=== PATIENT | female | born 1990 | race Two or more races ===

== ENCOUNTER 2025-03-25 08:33 | Emergency (ER) | payer MEDICAID, SELFPAY ==
[2025-03-25 08:52] VITALS: BP 120/83; PULSE 77; RESP 16; TEMP 36.7; O2SAT 99; BMI 37.4
--- NOTE | 2025-03-25 09:06 | XR_ITS ---
Examination: Pelvic ultrasound, transabdominal, complete Technique: Transabdominal ultrasound of the pelvis performed using grayscale imaging Date and time of exam: March 25, 2025 1050 hours INDICATIONS: Pelvic pain beginning 4 days ago. FINDINGS: Uterus 9.7 cm no discrete uterine mass or intrauterine gestation Endometrial stripe 0.6 cm Right ovary 3.4 cm arterial flow. Left ovary 4.6 cm arterial flow 3.7 x 2.3 x 3.0 cm cyst IMPRESSION: Left ovarian simple cyst 3.7 x 2.3 x 3.0 cm
[2025-03-25 09:55] LABS: Collection Type, Urine Clean Catch
[2025-03-25 09:58] LABS: Basophils # (Auto) 0.0 Thou/mm3 (0.0-0.2); Basophils % (Auto) 0 % (0-2.5); Eosinophils # (Auto) 0.0 Thou/mm3 (0.0-0.5); Eosinophils % (Auto) 1 % (0-10); Hematocrit 35.3 % (36.0-46.0); Hemoglobin 12.3 g/dL (12.0-16.0); Immature Granulocytes Auto 0.01 Thou/mm3 (0.00-0.00); Lymphocytes # (Auto) 1.3 Thou/mm3 (1.0-4.8); Lymphocytes % (Auto) 29 % (10-50); Mean Corpuscular HGB Conc 34.8 g/dl (31.0-37.0); Mean Corpuscular Hemoglobin 28.9 pg (25.0-35.0); Mean Corpuscular Volume 83 fL (80-100); Monocytes # (Auto) 0.3 Thou/mm3 (0.0-0.8); Monocytes % (Auto) 7 % (0-12); Neutrophils # (Auto) 2.8 Thou/mm3 (1.8-7.7); Neutrophils % (Auto) 63 % (37-80); Nucleated Red Blood Cell # 0.00 Thou/mm3 (0.00-0.00); Nucleated Red Blood Cell % 0 /100 WBC (0); Platelet Count 267 Thou/mm3 (140-440); RDW Standard Deviation 37.7 fL (36.4-46.3); Red Blood Count 4.26 Miln/mm3 (4.00-5.20); White Blood Count 4.5 Thou/mm3 (3.6-11.0)
[2025-03-25 10:01] LABS: HCG Qualitative,Urine Negative
[2025-03-25 10:08] LABS: Bacteria,Urine Rare; Bilirubin,Urine Negative (Negative); Blood,Urine Negative (Negative); Color,Urine Yellow (Lt Yel-Yel); Culture Indicated,Urine Not Indicated; Glucose, Urine Negative (Negative); Ketones,Urine Negative (Negative); Leukocyte Esterase,Urine Positive (Negative); Nitrite,Urine Negative (Negative); PH,Urine 6.0 (5.0-7.0); Protein,Urine Trace (Neg - Trace); RBC,Urine 6 /hpf (0-3); Specific Gravity,Urine 1.031 (1.001-1.035); Squamous Epithelial Cell,Urine 7 /hpf (0-5); Urobilinogen,Urine Negative mg/dL (0.0-1.0); WBC,Urine 7 /hpf (0-5)
[2025-03-25 10:11] LABS: Clarity,Urine Hazy (Clear/Hazy)
[2025-03-25 10:19] LABS: Alanine Aminotransferase 44 U/L (10-49); Albumin, Serum 3.9 gm/dL (3.5-5.0); Albumin/Globulin Ratio 1.6 (1.2-2.2); Alkaline Phosphatase 53 U/L (46-116); Anion Gap 7 (7-16); Aspartate Amino Transferase 23 U/L (0-34); BUN/Creatinine Ratio 12 Ratio (12-20); Bilirubin,Total 0.5 mg/dL (0.3-1.2); Blood Urea Nitrogen 7 mg/dL (9-23); Calcium 8.5 mg/dL (8.3-10.6); Calcium (Corrected) 8.6 mg/dL (8.5-10.1); Carbon Dioxide 24.2 mMol/L (20.0-31.0); Chloride 109 mMol/L (98-107); Creatinine (Component) 0.6 mg/dL (0.6-1.3); Estimated Creatinine Clearance 134.7 mL/min (>60); Globulin 2.4 gm/dL (2.3-3.5); Glucose 99 mg/dL (74-106); Osmolality,Calculated 277 (275-295); Potassium 4.2 mMol/L (3.4-5.1); Sodium 140 mMol/L (136-145); Total Protein 6.3 gm/dL (5.7-8.2); eGFR > 60 See Note
--- NOTE | 2025-03-25 11:36 | EDNOTE_ITS ---
ED Female Urogenital RME/HPI General Chief complaint: Abdominal Pain Stated complaint: PELVIC PAIN Time Seen by Provider: 03/25/25 09:02 Arrival date/time: 03/25/25 08:33 34-year-old female presents to the emergency department if complains of pelvic pain patient ports no dysuria or vaginal discharge no chance of or STD patient worse abdominal pain nausea vomiting Limitations: no limitations Related Data Previous Rx's ?Medication ?Instructions ?Recorded ibuprofen 600 mg tablet 600 mg PO TID PRN pain #30 t abs 09/10/21 Allergies Allergy/AdvReac Type Severity Reaction Status Date / Time No Known Allergies Allergy Verified 09/10/21 16:56 Review of Systems Review of Systems Systems Reviewed: All systems reviewed, normal except as documented Constitutional Constitutional: Reports system reviewed and no additional complaints, except as documented, Denies fever(s) and Denies headache(s) Eyes Eyes: Reports system reviewed and no additional complaints, except as documented and Denies blurry vision ENT Ears, Nose, Mouth, and Throat: Reports system reviewed and no additional complaints, except as documented, Denies headache(s), Denies nasal congestion and Denies nasal discharge Cardiovascular Cardiovascular: Reports system reviewed and no additional complaints, except as documented, Denies chest pain and Denies dyspnea Respiratory Respiratory: Reports system reviewed and no additional complaints, except as documented, Denies chest congestion, Denies cough and Denies dyspnea Gastrointestinal Gastrointestinal: Reports system reviewed and no additional complaints, except as documented and Denies abdominal pain Genitourinary Genitourinary: Reports system reviewed and no additional complaints, except as documented, Denies dysuria, Denies flank pain and Reports pelvic pain Integumentary/Breasts Skin/Breast: Reports system reviewed and no additional complaints, except as documented and Denies rash Neurologic Neurologic: Reports system reviewed and no additional complaints, except as documented, Reports as per HPI and Denies headache(s) Past Medical History Past Medical History NEUROLOGIC: Negative Neurological Disorders CARDIAC: Negative Cardiac Disorders or Congestive Heart Failure RESPIRATORY: Negative Chronic Obstructive Pulmonary Disease (COPD) GASTROINTESTINAL: Negative Gastrointestinal Disorders, Hepatitis or Colorectal Cancer GENITOURINARY: Negative Genitourinary Disorders, Renal Disease or Prostate Cancer REPRODUCTIVE: Positive Previous Pregnancies (X4); Negative Breast Cancer or Testicular Cancer MUSCULOSKELETAL: Negative Musculoskeletal Disorders or Bone Cancer ENDOCRINE: Negative Endocrine Disorders, Diabetes Mellitus Type 1 or Diabetes Mellitus Type 2 HEMATOLOGIC: Positive Blood Disorders and Anemia OTHER HISTORY: Positive Hospitalization (X2) and Blood Transfusions; Negative Autoimmune Disease, Down Syndrome, Developmental Delay, Falls, Blood Transfusion Reaction, Anesthesia Reactions, Organ Transplant, Chemotherapy, Radiation Therapy, Hyperbaric Therapy, MRSA, VRSA, Vancomycin-Resistant Enterococci, Human Immunodeficiency Virus (HIV), Chicken Pox, Measles, Mumps, Rubella (Maltese Measles), Pertussis, Clostridium Difficile, Cancer, Breast Cancer, Cervical Cancer, Colorectal Cancer, Lung Cancer, Ovarian Cancer, Prostate Cancer or Testicular Cancer Family History FAMILY HISTORY: Negative Family Psychiatric Problems, Family Respiratory Disorders, Family Cardiac Disorders, Family Gastrointestinal Problems, Family Cancer, Family Surgery or Family Anesthesia Reaction Surgical History SURGICAL: Positive Tonsillectomy; Negative Section or Organ Transplant Social History SMOKING STATUS: Never smoker SECOND HAND EXPOSURE: No SUBSTANCE USE: does not use 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 ED Exam General Limitations: Present no limitations General appearance: Present alert and in no apparent distress Head Head exam: Present atraumatic Eye Eye exam: Present normal appearance, PERRL and EOMI ENT ENT exam: Present normal exam, normal oropharynx and mucous membranes moist Neck Neck exam: Present normal inspection, full ROM and trachea midline Chest Chest inspection: Present normal inspection and symmetric chest wall rise Respiratory Respiratory exam: Present normal lung sounds bilaterally; Absent respiratory distress, wheezes, stridor, accessory muscle use or prolonged expiratory phase Cardiovascular Cardiovascular exam: Present regular rate, normal rhythm and normal heart sounds Abdominal Exam Abdominal exam: Present soft and normal bowel sounds Extremities Exam Extremities exam: Present normal inspection and full ROM Back Exam Back exam: Present normal inspection and full ROM Neurological Exam Neurological exam: Present alert, oriented X3 and CN II-XII intact Psychiatric Psychiatric exam: Present normal affect and normal mood Skin Skin exam: Present warm, dry, intact and normal color Course Quality Measures none Orders Category Date Time Status US pelvic complete Stat Exams 03/25/25 09:06 Completed CBC Stat Lab 03/25/25 09:50 Completed Comprehensive Metabolic Panel Stat Lab 03/25/25 09:50 Completed HCG Qualitative,Urine Stat Lab 03/25/25 09:27 Completed UA, C/S IF [Urinalysis, C/S if Indicated] Stat Lab 03/25/25 09:27 Completed Vital Signs Vital signs: Vital Signs Temperature 98.0 F 03/25/25 08:52 Pulse Rate 77 03/25/25 08:52 Respiratory Rate 16 03/25/25 08:52 Blood Pressure 120/83 03/25/25 08:52 Pulse Oximetry (%) 99 03/25/25 08:52 Oxygen Delivery Method Room Air 03/25/25 08:52 O2 saturation 99% on room air within normal limits Urogenital - Female MDM Narrative MDM Narrative:: 34-year-old female presents to the emergency department if complains of pelvic pain patient ports no dysuria or vaginal discharge no chance of or STD patient worse abdominal pain nausea vomiting On exam patient does not appear ill or toxic no acute distress Lab work and imaging obtained no acute emergent findings noted Ultrasound consistent with pelvic ovarian cyst Patient be treated with ibuprofen Patient instructed to 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-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 for further evaluation of this ovarian cyst for emergent concerns to return immediately Patient data External records reviewed:: [facility] previous records Clinical information provided by:: patient Social determinants that could affect healthcare access:: none Patient has the following chronic illnesses:: None How is presenting disease/condition affected by chronic disease/condition?: no chronic disease Evaluation data The following diagnostics were reviewed and interpreted by me:: lab results and radiology exam(s) Lab and/or radiology exams considered but not ordered:: Labs radiology obtained Interpretation Summary: Reviewed by me Medications / Prescriptions Medications or Prescriptions considered but not ordered:: Given Medication administrations:: Given Consultations Consultation(s) initiated? (list below): No Diagnosis Urogenital Female Differential Diagnosis: urinary tract infection, bacterial vaginosis, cyst of Bartholin's gland and cystitis Most likely diagnosis given after review of the tests above:: Cystitis Admission Indicated Admission indicated?: not indicated Admission Request Was there a request for admission?: No Disposition Plan Disposition Plan: Discharge Discharge Attestation Discharge Attestation: The patient and all family members were given an opportunity to ask questions and understood the discharge instructions. Discharge instructions specifically effects, indications for sooner follow up or return to the emergency department, and the expected course of current diagnosis. Patient condition: Stable Discharge Plan Plan Patient Disposition: HOME (Self Care) Discharge Disposition comment: Stable Prescriptions/Referrals Prescriptions/Med Rec: No Action ibuprofen 600 mg tablet 600 mg PO TID PRN (Reason: pain) Qty: 30 0RF Referrals: Nikky Calderon FNP [Primary Care Provider] - 03/26/25 Problem List Clinical Impression: Ovarian cyst, Pelvic pain Patient/Caregiver Discharge Instructions Education Materials: ED Ovarian Cyst Additional Instructions: Please follow up with your primary care doctor in the next 24-48hrs for any worsening symptoms return here immediately Print Language: Korean Stand Alone Forms: Tequila Award Info., Work/School Release, Patient Portal Info Letter PA/[employer] Supervising Physician PA/[employer] Supervising Physician: Dr. rodriguez
== END 2025-03-25 12:01 | disposition home or self-care (01) ==
PROVIDERS: Nurse Practitioner Primary Care; Emergency Provider Emergency Medicine; PCP Nurse Practitioner Family
DX: N83.292 Other ovarian cyst, left side (principal)
CPT/HCPCS: 36415; 76856; 80053; 81001; 81025; 85025; 99283

== ENCOUNTER 2025-06-17 10:39 | Outpatient (AMB) | payer MEDICAID, SELFPAY ==
[2025-06-17 11:13] VITALS: BP 122/87; PULSE 77; RESP 18; TEMP 36.4; O2SAT 98; BMI 37.3
--- NOTE | 2025-06-17 11:13 | GYNCLNT_ITS ---
Vital Signs 06/17/25 11:13 Height 1.55 m Height Method Stated Weight 89.811 kg Weight Measurement Method Standing Scale BMI 37.3 BP 122/87 H Blood Pressure Source Automatic Cuff Blood Pressure Location Right Upper Arm Position Sitting Respiration 18 Pulse 77 Pulse Source Monitor Temp 97.5 F Temp Source Temporal Artery Scan Pulse Oximetry (%) 98 Oxygen Delivery Method Room Air Allergies/Home Meds Allergies & Medications Allergies No Known Allergies Allergy (Verified 06/17/25 11:14) Medication Reconciliation ibuprofen 600 mg tablet 600 mg PO TID PRN pain #30 tabs 09/10/21 [Rx Confirmed 06/17/25] Intake Visit Data Collection New Patient or Established: Established Patient (seen at [facility] within 3 years) Reason for Visit:: REFERRAL OVARIAN CYST Seen by Clinical Staff ONLY (RN/MA): No 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: No Do You Feel Safe at Home: Yes Authorities Contacted: N/A PCP or OBGYN visit in last 3 months: No Hx Now: No Are you currently on any form of Control: No Last menstrual period: 05/02/25 Pain Present Currently: No Pain Scale Used: Lassiter-Weiss/Numerical Pain scale:: 0 Smoking Status Smoking Status: Never smoker Immunizations Flu Vaccine in the Last 12 Months: No Flu Vaccine Exclusion Criteria: No Exclusion Criteria 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 History Menstrual regularity: irregular Flow: heavy Monthly: No How many days does period last: 4 Age at menarche: 11 Currently sexually active: Yes 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 1. Little interest or pleasure in doing things: not at all 2. Feeling down, depressed, or hopeless: not at all Total score: 0 PHQ-9 3. Trouble falling or staying asleep, or sleeping too much: Not at all 4. Feeling tired or having little energy: Not at all 5. Poor appetite or overeating: Not at all 6. Feeling bad about yourself - or that you are a failure or have let yourself or your family down: Not at all 7. Trouble concentrating on things, such as reading the newspaper or watching television: Not at all 8. Moving or speaking so slowly that other people could have noticed? - Or the opposite - being so fidgety or restless that you have been moving around a lot more than usual: not at all 9. Thoughts that you would be better off or of hurting yourself in some way: Not at all Total score: 0 If you checked off any problems, how difficult have these problems made it for you to do your work, take care of things at home, or get along with other people?: not difficult at all Source: Developed by Drs. Jason Williamson, Halle Jc, Walt Chu and colleagues, with an educational adalid from [employer]. Depression screen completed yes Social History Living Situation History Marital Status: Lives With: Family Housing: House Tobacco History Smoking Status: Never smoker Second Hand Smoke Exposure: No Alcohol History Alcohol Intake: Never Domestic Abuse History Do You Feel Safe at Home: Yes History of Present Illness HPI Narrative Follow-up for left ovarian cyst, absence of menstrual periods with last period in April Tequila Alvarez is a [age] female presenting for follow-up of a left ovarian cyst and amenorrhea. She was seen in the emergency room on 03/25/2025 where imaging revealed a simple left ovarian cyst measuring 3.7 by 2.3 by 3 centimeters, which represents an increase from a previous ultrasound on 11/04/2024 that showed a 3.4 by 3.8 centimeters left ovarian cyst. The patient reports cessation of menstrual periods, with her last period oc curring in April. She had no periods in May and June, and prior to her April period, she had not menstruated for 3 months. She is not currently using any hormonal contraception, including no control implant or IUD. She was previously prescribed oral contraceptive pills but discontinued them due to severe headaches. She was also given a NuvaRing but has not used it. Medical History: - Emergency room visit on 03/25/2025 - Seasonal allergies Surgical History: - Tonsillectomy and adenoidectomy in childhood Obstetric History: - GPAL: A1 L4 - Four prior pregnancies resulted in vaginal deliveries Medications: - control pills, discontinued due to severe headaches - NuvaRing, was given but hasn't used it Diagnostic Test Results and Labs: - Pelvic ultrasound (03-25-2025): Uterus measuring 9.7 cm, no discrete uterine mass, endometrial stripe 0.6 cm, right ovary 3.4 cm with arterial flow, left ovary 4.6 cm with arterial flow, simple left ovarian cyst 3.7 x 2.3 x 3 cm - Pelvic ultrasound (11-04-2024): Left ovarian cyst 3.4 x 3.8 cm - AMH: Low - Leptin: Results obtained Exam General General Appearance: alert, in no apparent distress and healthy appearing Head Head exam: atraumatic Neck Neck exam: Present normal inspection and trachea midline Chest Chest inspection: Present normal inspection and symmetric chest wall rise External exam: Present normal external exam; Absent tenderness Neuro Neurological exam: Present oriented X3 Psych Psychiatric exam: Present normal affect and normal mood Office Procedures O[facility] Clinic LOC & Office Proc's Nursing/Assessment Patient Status: Established Patient OB Clinic Nursing Assessment: Medication Reconciliation, Update PMH in EMR and Vital Signs OB Clinic Coordination of Care: Complex Care and Chronic Disease 1-5, Education Complex Pt/Fam, Consent,records obtained, informed consent, Lab and Imaging orders, Results/Orders obtained and Staff clarify orders Established Patient Charge Established Patient Point Assignment: 110 Established Patient Point Charge: EP Level 3 (80-115) Assessment & Plan Diagnosis / Problem List (1) Ovarian cyst: Status: Inactive Plan Amenorrhea Assessment: Patient reports cessation of menstrual periods with last period in April, followed by absence of periods in May and June, and a prior 3- month amenorrheic period. She is not using any hormonal contraception currently, having discontinued oral contraceptive pills due to severe headaches and not utilizing the prescribed NuvaRing. Laboratory workup at [facility] included AMH testing showing low egg count but not indicating menopause, and leptin testing related to metabolism as a potential cause for cycle cessation. Further evaluation with FSH testing is needed to determine menopausal status, with levels above 23 indicating menopause transition and below 23 ruling it out. Plan: - Order FSH test to determine menopause status - Blood test order will be provided - Follow-up visit will be scheduled to determine next steps - Consider NuvaRing for hormonal management, though patient expressed concerns about yeast infections - Transdermal patch suggested as alternative hormonal option Left ovarian cyst Assessment: Simple left ovarian cyst measuring 3.7 by 2.3 by 3 centimeters id entified on emergency room ultrasound from 03/25/2025. Previous ultrasound from 11/04/2024 showed a 3.4 by 3.8 centimeters left ovarian cyst. Current cyst size is 3 to 3.4 centimeters on the left ovary. Surgical intervention is considered if the cyst exceeds 5 centimeters or if significant pain develops. Plan: - 6-month follow-up ultrasound recommended in September to monitor cyst progression - Continue observation as cyst size does not meet surgical criteria Contraception counseling Assessment: Patient is considering permanent sterilization options including partial hysterectomy. Tubal ligation represents a less invasive alternative for sterilization compared to hysterectomy. Plan: - Counseled on tubal ligation as less invasive sterilization option compared to partial hysterectomy
== END 2025-06-17 11:23 | disposition home or self-care (01) ==
LOC: HODSOBC 10:39
PROVIDERS: PCP Nurse Practitioner; Referring Provider Nurse Practitioner; Supervising Provider Obstetrics & Gynecology; Visit Provider Obstetrics & Gynecology
DX: N83.202 Unspecified ovarian cyst, left side (principal)
CPT/HCPCS: 99213; G0463